=== PATIENT | male | born 1995 | race Caucasian/White ===

== ENCOUNTER 2018-01-26 23:09 | Emergency (ER) | payer BC ==
[~2018-01-26] VITALS: Ht 182.9 cm; Wt 100.0 kg
[2018-01-26 23:21] VITALS: O2SAT 93; Ht 182.9 cm; Wt 100.0 kg
[2018-01-26 23:57] LABS: CREATININE 0.95 mg/dl (0.60-1.40); POTASSIUM 3.2 mmol/L (3.5-5.1)
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
[2018-01-27 09:52] VITALS: BP 119/72; PULSE 80; TEMP 36.3; O2SAT 99
== END 2018-01-27 09:54 | disposition home or self-care (01) ==
LOC: EDBD 23:09 → C.EDB 23:12
DX: F10.920 Alcohol use, unspecified with intoxication, uncomplicated (principal); S00.81XA Abrasion of other part of head, initial encounter; S00.31XA Abrasion of nose, initial encounter; W19.XXXA Unspecified fall, initial encounter; Y92.89 Other specified places as the place of occurrence of the external cause